=== PATIENT | male | born 1995 | race Two or more races ===

== ENCOUNTER 2024-01-07 11:03 | Inpatient (IN) | payer BC ==
[~2024-01-07] VITALS: Ht 182.9 cm; Wt 127.6 kg
[2024-01-07] MEDS: DEXAMETHASONE SOD PHOS 4 MG/ML 5 ML VIAL IVP ONE (11:34)
[2024-01-07] MEDS: 0.9% SODIUM CHLORIDE 10 ML SYRINGE IVP PRN (11:35)
[2024-01-07] MEDS: SODIUM CHLORIDE 0.9% 3,800 ML IV ONE (11:35)
[2024-01-07 11:46] LABS: BASOPHILS % (AUTO) 0.3 % (0.0-2.0); EOSINOPHILS % (AUTO) 0 % (1.0-6.0); HEMATOCRIT 41.9 % (41-53); LYMPHOCYTES % (AUTO) 12.5 % (22.0-44.0); MEAN CORPUSCULAR HEMOGLOBIN 29.5 pg (26.0-34.0); MEAN CORPUSCULAR HGB CONC 33.4 G/dL (31.0-37.0); MEAN CORPUSCULAR VOLUME 88 fL (80-100); MONOCYTES # (AUTO) 2.1 K/uL (0.1-1.0); NEUTROPHILS # (AUTO) 11.9 K/uL (1.8-7.7); NEUTROPHILS % (AUTO) 74.2 % (40.0-70.0); PLATELET COUNT (AUTO) 237 K/uL (150-450); RED BLOOD CELL COUNT(AUTO) 4.74 MIL/uL (4.50-5.90); RED CELL DISTRIBUTION WIDTH 13.4 % (11.5-14.5); WHITE BLOOD COUNT (AUTO) 16.1 K/uL (4.5-11.0)
[2024-01-07 12:16] LABS: LACTIC ACID 1.2 mmol/L (0.4-2.0)
[2024-01-07 12:17] LABS: INR 1.1 (0.9-1.1); PROTHROMBIN TIME 11.1 SEC (9.4-11.6)
[2024-01-07] MEDS: AMPICILLIN SODIUM/SULBACTAM NA 3 GM in SODIUM CHLORIDE 0.9% 100 ML IV ONE (12:19)
[2024-01-07 13:09] LABS: ANION GAP 14 mmol/L (8-16); CALCIUM, TOTAL 8.9 mg/dL (8.8-10.5); CARBON DIOXIDE 22 mmol/L (22-29); CHLORIDE 99 mmol/L (98-107); CREATININE 1.09 mg/dL (0.60-1.30); GLOMERULAR FILTR. RATE CALC > 60 mL/min (>60); GLUCOSE,RANDOM 103 mg/dL (70-110); POTASSIUM 3.7 mmol/L (3.5-5.1); SODIUM SERUM 135 mmol/L (136-145); UREA NITROGEN, BLOOD 13 mg/dL (7-18)
[2024-01-07 13:15] LABS: ALANINE AMINOTRANSFERASE 18 U/L (12-78); ALBUMIN 3.3 g/dL (3.4-5.0); ALKALINE PHOSPHATASE 60 U/L (46-116); ASPARTATE AMINOTRANSFERASE 22 U/L (15-37); BILIRUBIN,TOTAL 0.4 mg/dL (0.1-1.0)
[2024-01-07] MEDS ORDERED: SODIUM CHLORIDE 0.9% 100 ML ONE ×2 (13:39→14:37)
[2024-01-07] MEDS ORDERED: IOHEXOL 350 MG/ML 100 ML VIAL ONE ×2 (13:39→14:37)
[2024-01-07] MEDS ORDERED: ACETAMINOPHEN 325 MG TABLET PO PRN (14:30)
[2024-01-07] MEDS ORDERED: ONDANSETRON HCL 4 MG/2 ML VIAL IVP PRN (14:30)
[2024-01-07] MEDS ORDERED: 0.9% SODIUM CHLORIDE 10 ML SYRINGE IVP ONE (14:36)
[2024-01-07] MEDS: AZITHROMYCIN 500 MG/NS 250 ML IV ONE (15:12)
[2024-01-07] MEDS: RINGERS SOLUTION,LACTATED 1,000 ML IV ONE (15:13)
[2024-01-07 15:25] LABS: APPEARANCE,URINE CLEAR (CLEAR); BILIRUBIN,URINE NEGATIVE (NEGATIVE); COLOR,URINE YELLOW (YELLOW); GLUCOSE, URINE (UA) NEGATIVE (NEGATIVE); KETONES,URINE TRACE mg/dL (NEGATIVE); LEUKOCYTE ESTERASE ,URINE NEGATIVE (NEGATIVE); NITRATE,URINE NEGATIVE (NEGATIVE); OCCULT BLOOD,URINE NEGATIVE (NEGATIVE); PH,URINE 6.5 (5.0-8.0); PROTEIN,URINE 30-70 mg/dL (NEGATIVE); SPECIFIC GRAVITIY, URINE 1.035 (1.003-1.030); UROBILINOGEN,URINE <=1.0 mg/dL (<=1.0)
[2024-01-07] MEDS: HEPARIN SODIUM,PORCINE 5,000 UNITS/ML VIAL SQ SCH (16:00)
[2024-01-07 16:21] VITALS: BP 137/82; PULSE 96; RESP 20; TEMP 98.9; O2SAT 100
[2024-01-07 16:28] LABS: INFLUENZA TYPE A NEGATIVE FOR TYPE A (NEGATIVE)
[2024-01-07 16:46] LABS: INFLUENZA TYPE B POSITIVE FOR TYPE B (NEGATIVE)
[2024-01-07] MEDS: KETOROLAC TROMETHAMINE 30 MG/ML VIAL IVP ONE (18:24)
[2024-01-07] MEDS: CLINDAMYCIN 600 MG/D5% WATER 50 ML IV ONE (18:25)
[2024-01-07 20:00] VITALS: BP 125/69; PULSE 73; RESP 24; TEMP 98; O2SAT 96
[2024-01-07] MEDS: DEXAMETHASONE SOD PHOS 4 MG/ML VIAL IVP SCH (20:44)
[2024-01-07] MEDS ORDERED: SODIUM CHLORIDE 0.9% 250 ML IV ONE (22:42)
[2024-01-07] MEDS: PIPERACILLIN/TAZO 3.375 GM/D5W 50 ML IV SCH (22:50)
[2024-01-08 01:36] VITALS: BP 127/72; PULSE 73; RESP 20; TEMP 97.7; O2SAT 94
[2024-01-08 04:43] VITALS: BP 133/75; PULSE 70; RESP 20; TEMP 97.7; O2SAT 97
[2024-01-08 06:22] LABS: BASOPHILS % (AUTO) 0.1 % (0.0-2.0); EOSINOPHILS % (AUTO) 0 % (1.0-6.0); HEMATOCRIT 40.7 % (41-53); HEMOGLOBIN 13.7 g/dL (13.5-17.5); LYMPHOCYTES # (AUTO) 1.5 K/uL (1.0-4.8); LYMPHOCYTES % (AUTO) 10.9 % (22.0-44.0); MEAN CORPUSCULAR HEMOGLOBIN 29.9 pg (26.0-34.0); MEAN CORPUSCULAR HGB CONC 33.7 G/dL (31.0-37.0); MEAN CORPUSCULAR VOLUME 89 fL (80-100); MONOCYTES # (AUTO) 0.8 K/uL (0.1-1.0); NEUTROPHILS # (AUTO) 11.4 K/uL (1.8-7.7); PLATELET COUNT (AUTO) 226 K/uL (150-450); RED BLOOD CELL COUNT(AUTO) 4.59 MIL/uL (4.50-5.90); RED CELL DISTRIBUTION WIDTH 13.3 % (11.5-14.5); WHITE BLOOD COUNT (AUTO) 13.8 K/uL (4.5-11.0)
[2024-01-08 06:47] LABS: ANION GAP 9 mmol/L (8-16); CALCIUM, TOTAL 8.9 mg/dL (8.8-10.5); CARBON DIOXIDE 25 mmol/L (22-29); CHLORIDE 105 mmol/L (98-107); CREATININE 0.89 mg/dL (0.60-1.30); GLOMERULAR FILTR. RATE CALC > 60 mL/min (>60); GLUCOSE,RANDOM 131 mg/dL (70-110); POTASSIUM 4.4 mmol/L (3.5-5.1); SODIUM SERUM 139 mmol/L (136-145); UREA NITROGEN, BLOOD 16 mg/dL (7-18)
[2024-01-08 08:00] VITALS: BP 130/83; PULSE 81; RESP 18; TEMP 98.1; O2SAT 97
[2024-01-08 11:15] VITALS: BP 128/78; PULSE 85; RESP 16; TEMP 98.9; O2SAT 98
[2024-01-08 16:20] VITALS: BP 122/64; RESP 18; TEMP 98; O2SAT 94
[2024-01-08 20:00] VITALS: BP 122/60; PULSE 88; RESP 18; TEMP 98.5; O2SAT 99
[2024-01-09 00:02] VITALS: BP 127/89; PULSE 87; RESP 20; TEMP 99.2; O2SAT 96
[2024-01-09] MEDS ORDERED: SODIUM CHLORIDE 0.9% 500 ML IV ONE (00:32)
[2024-01-09 04:39] VITALS: BP 135/76; PULSE 78; RESP 20; TEMP 97.8; O2SAT 96
[2024-01-09 08:10] VITALS: BP 126/69; PULSE 75; RESP 20; TEMP 98.3; O2SAT 100
[2024-01-09 15:54] VITALS: BP 138/75; PULSE 65; RESP 18; TEMP 98.2; O2SAT 100
[2024-01-09 20:06] VITALS: BP 131/77; PULSE 96; RESP 20; TEMP 98.2; O2SAT 99
[2024-01-10 05:20] VITALS: BP 145/76; PULSE 75; RESP 20; TEMP 97.9; O2SAT 99
[2024-01-10 07:57] VITALS: BP 128/71; PULSE 62; RESP 18; TEMP 97.9; O2SAT 98
[2024-01-10 08:41] LABS: ANION GAP 9 mmol/L (8-16); CALCIUM, TOTAL 8.1 mg/dL (8.8-10.5); CARBON DIOXIDE 26 mmol/L (22-29); CHLORIDE 100 mmol/L (98-107); CREATININE 0.99 mg/dL (0.60-1.30); GLOMERULAR FILTR. RATE CALC > 60 mL/min (>60); GLUCOSE,RANDOM 87 mg/dL (70-110); POTASSIUM 3.6 mmol/L (3.5-5.1); SODIUM SERUM 135 mmol/L (136-145); UREA NITROGEN, BLOOD 13 mg/dL (7-18)
[2024-01-10 08:49] LABS: BASOPHILS % (AUTO) 0.4 % (0.0-2.0); EOSINOPHILS % (AUTO) 0.1 % (1.0-6.0); HEMATOCRIT 41.5 % (41-53); HEMOGLOBIN 14.1 g/dL (13.5-17.5); LYMPHOCYTES # (AUTO) 2.4 K/uL (1.0-4.8); LYMPHOCYTES % (AUTO) 18.4 % (22.0-44.0); MEAN CORPUSCULAR HEMOGLOBIN 29.8 pg (26.0-34.0); MEAN CORPUSCULAR HGB CONC 33.9 G/dL (31.0-37.0); MEAN CORPUSCULAR VOLUME 88 fL (80-100); MONOCYTES # (AUTO) 1.2 K/uL (0.1-1.0); MONOCYTES % (AUTO) 9.4 % (2.0-9.0); NEUTROPHILS # (AUTO) 9.3 K/uL (1.8-7.7); NEUTROPHILS % (AUTO) 71.7 % (40.0-70.0); PLATELET COUNT (AUTO) 284 K/uL (150-450); RED BLOOD CELL COUNT(AUTO) 4.73 MIL/uL (4.50-5.90); RED CELL DISTRIBUTION WIDTH 13.2 % (11.5-14.5); WHITE BLOOD COUNT (AUTO) 12.9 K/uL (4.5-11.0)
[2024-01-10] MEDS ORDERED: LEVO750T68 PO (10:57)
[2024-01-10] MEDS ORDERED: CLIN300C58 PO (10:57)
[2024-01-10] MEDS ORDERED: DEXA1TAB PO (11:05)
[2024-01-10] MEDS ORDERED: OSEL75CA45 PO (14:53)
[2024-01-10 16:03] VITALS: BP 134/73; PULSE 87; RESP 18; TEMP 98.2; O2SAT 100
== END 2024-01-10 18:12 | disposition home or self-care (01) | DRG 871 ==
LOC: EMS 11:03 → EDH 14:27 → 5S 16:23 → 4E 01-08 23:48
PROVIDERS: ADMIT Internal Medicine; ATTEND Internal Medicine
DX: A41.9 Sepsis, unspecified organism (principal); N17.0 Acute kidney failure with tubular necrosis; J10.1 Influenza due to other identified influenza virus with other respiratory manifestations; Z91.09 Other allergy status, other than to drugs and biological substances
CPT/HCPCS: 70491; 71045; 80048; 80053; 81003; 83605; 83735; 84145; 85025; 85610; 86308; 87040; 87430; 87804; 92610; 93005; 99285; G0378; J0295; J0456; J1100; J1644; J1885; J2543; J3490; J7030; J7040; J7050; J7120; 36415-L1; 36415-TC